=== PATIENT | female | born 1995 | race Caucasian/White ===

== ENCOUNTER 2016-07-21 12:33 | Emergency (ER) | payer BC ==
[~2016-07-21] VITALS: Ht 170.2 cm; Wt 76.1 kg
[2016-07-21 12:35] VITALS: Ht 170.2 cm; Wt 76.1 kg
[2016-07-21] MEDS ORDERED: BCPILLS PO (12:58)
[2016-07-21] MEDS ORDERED: MINO0.1C2 PO (12:58)
[2016-07-21] MEDS ORDERED: ONDANSETRON 4MG OD TAB PO ONE (13:00)
[2016-07-21] MEDS ORDERED: TRAM-10 PO (13:02)
[2016-07-21] MEDS ORDERED: ONDA4TAB10 SL (13:02)
[2016-07-21 13:29] VITALS: BP 109/81; PULSE 74; TEMP 36.5; O2SAT 98
--- NOTE | 2016-07-21 18:16 | EMERGENCY ROOM VISIT NOTE ---
History First contact with patient: 12:40 Chief Complaint: HEAD INJURY (MINOR) Stated Complaint: CONFUSION, WHEELER, FATIGUE/CONCUSSION, SORE HEAD History of Present Illness The patient is a 21 year old female who presents to the Emergency Room with complaints of headache, confusion, fatigue, nausea, photophobia and phonophobia after accidentally hitting the top of her head yesterday with her trunk lid. The patient reports that she was loading groceries into her trunk last evening while talking with a friend. When she went to close the trunk lid, it hit the top of her head. The patient denies any loss of consciousness. The patient reports that her symptoms did progressively worsening throughout last evening. When she awoke this morning, the pain seemed to be better. 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 She also had worsening headache and nausea. When she left to go home, her symptoms did improve. She called her mother, who suggested that she come to the emergency department for further evaluation. The patient reports that she has had a couple head injuries while playing sports in high school. She does not know if she has had any prior concussion diagnoses. She has not noticed any significant balance issues, blurred vision or neck pain. She currently rates her discomfort a 3 out of 10. She has not taken any medicine for her pain. Review of Systems 10 system review was performed and was negative except for pertinent positives and negatives as indicated in history of present illness Past Medical/Surgical History Medical Problems: (1) No significant past medical history Surgical Problems: (1) No history of previous surgery Family History Unremarkable Social History Smoking Status: Never Smoker Alcohol Use: occasionally Marital Status: single Housing Status: lives with roommate Occupation Status: [employer] Current/Historical Medications Scheduled Control Pills ( Control Pills), 1 TAB PO DAILY Minocycline Hcl (Minocin), 50 MG PO DAILY Ondasetron Odt (Zofran Odt), 4 MG SL Q6H Scheduled PRN Tramadol (Ultram), 1-2 TAB PO Q4H PRN for Pain Allergies Coded Allergies: No Known Allergies (Unverified , 07/21/16) Physical Exam Vital Signs Date Time Temp Pulse Resp B/P Pulse Ox O2 Delivery O2 Flow Rate FiO2 07/21/16 13:29 36.5 74 16 109/81 98 07/21/16 13:23 74 16 109/81 98 Room Air 07/21/16 12:35 36.5 70 18 114/75 100 Room Air Physical Exam CONSTITUTIONAL: Healthy and well nourished. Alert and oriented X 3 with positive affect. GCS 15. HEENT: Examination shows minimal erythema to the right parietum. No laceration or hematoma formation. Pupils equal, round and reactive. No epistaxis, subconjunctival hemorrhage, hemotympanum, raccoon's eyes or Romero sign. NECK: Full active range of motion without discomfort. RESPIRATORY: Clear to auscultation bilaterally with no wheezing, crackles, rhonchi or stridor. CARDIOVASCULAR: Regular rate and rhythm with no murmurs, rubs or gallops. GASTROINTESTINAL: Bowel sounds present in all quadrants. MUSCULOSKELETAL: Full range of motion of all joints without discomfort. INTEGUMENTARY: No rash or other significant dermatologic conditions noted. NEUROLOGIC: Cranial nerves II-XII grossly intact. No focal neurologic deficits noted. Normal finger to nose test. Negative pronator drift. No ataxia with ambulation. Medical Decision & Procedures Medications Administered Medications (Trade) Dose Ordered Sig/Yasmin Route Start Time Stop Time Status Last Admin Dose Admin Ondansetron HCl (Zofran Odt) 4 mg ONE ONCE PO 07/21/16 13:00 07/21/16 13:01 DC 07/21/16 13:04 4 MG ED Course Patient history and physical exam were performed. Nurse's notes were reviewed. Vital signs were reviewed and were normal. Patient history and clinical exam are consistent with a mild concussion. I did discuss further ED workup for concussions, especially with any clinical concern for intracranial bleed. I did discuss radiation exposure with CT studies. After discussion, the patient elected conservative management. The patient was encouraged to take Tylenol 1000 mg every 6-8 hours as needed for baseline pain relief. She did receive prescriptions for tramadol and Zofran ODT as needed for additional symptomatic relief. She was encouraged to refrain from NSAIDs or aspirin over the next several days. She was instructed to return to the emergency department as needed for any progressively worsening symptoms, otherwise may follow up with [facility] as needed for further concussion management. The patient was administered Zofran 4 mg ODT prior to discharge, and rated her discomfort a 3 out of 10 at that time. Impression Primary Impression: Concussion Departure Information Dispostion Home / Self-Care Prescriptions Tramadol (Ultram) 50 Mg Tab 1-2 TAB PO Q4H Y for Pain, #20 TAB For Initial Treatment Prov: Espinoza Villanueva PA 07/21/16 Ondasetron Odt (ZOFRAN ODT) 4 Mg Tab 4 MG SL Q6H for Nausea, #10 TAB Prov: Espinoza Villanueva PA 07/21/16 Referrals Yamile Tolliver M.D. (PCP) Forms HOME CARE DOCUMENTATION FORM, IMPORTANT VISIT INFORMATION Patient Instructions [facility], ED Concussion Additional Instructions Read concussion handout. Continue to intermittently apply ice to scalp for swelling and pain. Avoid ibuprofen/Motrin/Advil/Aleve/proximal and for now. Tylenol 1000 mg every 6-8 hours for baseline pain relief. Ultram if needed for worse pain. Zofran ODT if needed for nausea. Return to the emergency department for any progressively worsening symptoms. Follow-up with [facility] as needed for further concussion management. Problem Qualifiers Primary Impression: Concussion Encounter type: initial encounter Loss of consciousness presence/duration: without LOC Qualified Codes: S06.0X0A - Concussion without loss of consciousness, initial encounter
== END 2016-07-21 13:30 | disposition home or self-care (01) ==
LOC: C.EDB 12:35 → C.EDD 13:30
DX: S06.0X0A Concussion without loss of consciousness, initial encounter (principal); W22.8XXA Striking against or struck by other objects, initial encounter; Z79.899 Other long term (current) drug therapy